=== PATIENT | female | born 1960 | race Caucasian/White ===

== ENCOUNTER 2021-10-12 00:46 | Day surgery (SDC) | payer OTHER, SELFPAY ==
[2021-10-04 14:01] VITALS: BMI 48.9
[2021-10-12 09:05] VITALS: BP 150/92; PULSE 96; RESP 20; TEMP 36.6; O2SAT 94
[2021-10-12] MEDS: LACTATED RINGERS 1,000 ML 150 ML IV CONT (09:15)
--- NOTE | 2021-10-12 09:44 | PM.IMHP ---
H&P: HPI History of Present Illness Date/Time: 10/12/21 09:44 Chief Complaint: Neoplasia screening. Narrative: This is a 61-year-old white female patient presents for screening colonoscopy. Patient reports her current weight appetite and bowel movements are normal. She denies abdominal pain. She has had no bleeding. Family history is noncontributory. She presents today for neoplasia screening Review of Systems Review of Systems: review of systems noncontributory. [facility] Past Medical History Medical History (Updated 10/12/21 @ 09:45 by Jarett Cantrell MD) BMI 45.0-49.9, adult Breast cancer screening by mammogram Colon cancer screening COVID-19 (~10/28/20) fully vaccinated and subsequent [facility] illness Encounter for wellness examination in adult Vitamin B12 deficiency anemia (03/12/21) level low at 283 on 03/12/2021 Family History Family History (Updated 08/09/18 @ 14:38 by DOCTOR UNKNOWN) Mother Diabetes mellitus Family history of lung cancer, Onset Age: 70 Father Patient's father is , Onset Age: 56 Social History Social History Smoking status: Never smoker Alcohol intake: current Drinks per week: 6 Alcohol use details: beer Substance use: never Substance use type: does not use Living arrangements: with family Spiritual care concerns: No Meds Home Medications and Allergies Home Medications Medication Instructions Recorded Confirmed Type escitalopram oxalate 20 mg tablet 20 mg PO DAILY #30 tabs 11/17/20 10/04/21 Rx lisinopril 40 mg tablet 40 mg PO DAILY #30 tabs 01/18/21 10/04/21 Rx cyanocobalamin (vitamin B-12) 1,000 mcg PO DAILY 03/15/21 10/04/21 History 1,000 mcg tablet ergocalciferol (vitamin D2) 1,250 50,000 unit PO WEEKLY #4 caps 04/16/21 10/04/21 Rx mcg (50,000 unit) capsule cyclobenzaprine 10 mg tablet 10 mg PO TID PRN muscle spasm #90 06/21/21 10/04/21 Rx tabs hydrocodone 5 mg-acetaminophen 325 1 tablet PO Q4H PRN pain #120 tabs 08/25/21 10/04/21 Rx mg tablet peg 3350-electrolytes 236 240 ml PO Q10M #4,000 mL 09/08/21 Rx gram-22.74 gram-6.74 gram-5.86 gram solution (Golytely) Allergies Allergy/AdvReac Type Severity Reaction Status Date / Time No Known Allergies Allergy Verified 10/12/21 09:04 Vital Signs Vital Signs - 24 hr 10/12/21 09:05 Temperature 97.9 F Pulse Rate 96 Respiratory Rate 20 Blood Pressure 150/92 H Pulse Oximetry 94 Oxygen Delivery Room Air Exam Narrative: Physical exam reveals patient to be alert. Vital signs stable. HEENT exam is unremarkable. Patient is anicteric. Lungs are clear to auscultation and percussion. Heart is without murmur or extra sounds. Abdominal exam Is obese. bowel sounds present soft nontender with no organomegaly. Digital external rectal exam is normal. Assessment and Plan Assessment and plan (1) Encounter for screening colonoscopy: Code(s): Z12.11 - Encounter for screening for malignant neoplasm of colon Status: Acute Assessment and Plan: Patient presents for screening colonoscopy. Appears to be at average risk for colon polyps.
--- NOTE | 2021-10-12 10:00 | WPDANESEPPF ---
Anes - Initial Pre Proc Eval Procedure: Operation Date: 10/12/21 11:00 Proposed Procedures p Screening Colonoscopy - Jarett Cantrell MD Date/Time: 10/12/21 10:00 Surgeon: Jarett Cantrell MD Pre Op Diagnosis: neoplasm screening Patient Data Age: 61 Gender: F Height: 1.52 m Weight: 115 kg Last Vital Signs Temp 97.9 F 10/12/21 09:05 Pulse 96 10/12/21 09:05 Resp 20 10/12/21 09:05 BP 150/92 H 10/12/21 09:05 Pulse Ox 94 10/12/21 09:05 O2 Del Method Room Air 10/12/21 09:05 Allergies Allergy/AdvReac Type Severity Reaction Status Date / Time No Known Allergies Allergy Verified 10/12/21 09:04 Home Medications Medication Instructions Recorded Confirmed Type escitalopram oxalate 20 mg tablet 20 mg PO DAILY #30 tabs 11/17/20 10/04/21 Rx lisinopril 40 mg tablet 40 mg PO DAILY #30 tabs 01/18/21 10/04/21 Rx cyanocobalamin (vitamin B-12) 1,000 mcg PO DAILY 03/15/21 10/04/21 History 1,000 mcg tablet ergocalciferol (vitamin D2) 1,250 50,000 unit PO WEEKLY #4 caps 04/16/21 10/04/21 Rx mcg (50,000 unit) capsule cyclobenzaprine 10 mg tablet 10 mg PO TID PRN muscle spasm #90 06/21/21 10/04/21 Rx tabs hydrocodone 5 mg-acetaminophen 325 1 tablet PO Q4H PRN pain #120 tabs 08/25/21 10/04/21 Rx mg tablet peg 3350-electrolytes 236 240 ml PO Q10M #4,000 mL 09/08/21 Rx gram-22.74 gram-6.74 gram-5.86 gram solution (Golytely) Patient hx anesthesia problems: none Family hx anesthesia problems: none Results Review: All pre-operative results and documents have been reviewed as part of the pre-operative evaluation. [facility] Past Medical History Medical History (Updated 10/12/21 @ 09:45 by Jarett Cantrell MD) BMI 45.0-49.9, adult Breast cancer screening by mammogram Colon cancer screening COVID-19 (~10/28/20) fully vaccinated and subsequent COVID illness Encounter for wellness examination in adult Vitamin B12 deficiency anemia (03/12/21) level low at 283 on 03/12/2021 Family History Family History (Updated 08/09/18 @ 14:38 by DOCTOR UNKNOWN) Mother Diabetes mellitus Family history of lung cancer, Onset Age: 70 Father Patient's father is , Onset Age: 56 Social History Social History Smoking status: Never smoker Alcohol intake: current Drinks per week: 6 Alcohol use details: beer Substance use: never Substance use type: does not use Living arrangements: with family Spiritual care concerns: No Anes - Eval Final PreProcedure Day of Procedure 10/12/21 10:00 Patient weight: super morbidly obese Heart: regular rate and rhythm Lungs: clear to auscultation Airway: Mallampati scale class II Neurological: alert and oriented Last oral intake: >/= 8 hours ASA classification: III Emergent: no Anesthetic plan: proceed Anesthesia type and monitoring: general GIVS and standard monitoring Results Review: All pre-operative results and documents have been reviewed as part of the pre-operative evaluation. Informed Consent: The patient's anesthetic plan and its attendant risks and benefits were discussed with the patient/family/POA. Questions were solicited and answers provided to the satisfaction of the patient/family/POA.
[2021-10-12 10:25] VITALS: BP 145/84; PULSE 92; RESP 30; O2SAT 90
[2021-10-12 10:35] VITALS: BP 148/92; PULSE 85; RESP 30; O2SAT 95
[2021-10-12 10:45] VITALS: BP 150/85; PULSE 83; RESP 30; O2SAT 95
== END 2021-10-12 11:00 | disposition home or self-care (01) ==
PROVIDERS: PCP Family Medicine; Visit Provider Internal Medicine Gastroenterology
PROC: 0DJD8ZZ Inspection of Lower Intestinal Tract, Via Natural or Artificial Opening Endoscopic (ICD-10-PCS; CPT 45378; principal; 2021-10-12 11:00)
DX: Z12.11 Encounter for screening for malignant neoplasm of colon (principal); K63.5 Polyp of colon; D12.2 Benign neoplasm of ascending colon; K64.8 Other hemorrhoids; Z86.16 Personal history of COVID-19; D51.9 Vitamin B12 deficiency anemia, unspecified; E66.01 Morbid (severe) obesity due to excess calories; Z68.42 Body mass index [BMI] 45.0-49.9, adult
CPT/HCPCS: 45385; 88305; J2704; J7120

== ENCOUNTER 2024-08-14 10:15 | Outpatient (CLI) | payer OTHER, SELFPAY ==
--- NOTE | ~2024-08-14 | MM_ITS ---
EXAMINATION: MM screening willem BI w traci HISTORY: Screening TECHNIQUE: Craniocaudal and mediolateral oblique 3-D tomosynthesis images were obtained and synthetic 2-D images were generated. CAD analysis was submitted and interpreted. COMPARISON: No prior mammogram is available for comparison at this institution. BREAST PARENCHYMAL COMPOSITION: Not Dense. The breasts are almost entirely fatty. FINDINGS: There is no evidence of suspicious mass, calcification, or architectural distortion to sugg est malignancy in either breast. There has been no suspicious interval change. IMPRESSION: 1. No mammographic evidence of malignancy. 2. Recommend routine screening mammography in one year. BI-RADS Category 1: Negative Reviewed, dictated and finalized at location A.
== END 2024-08-14 10:16 | disposition home or self-care (01) ==
LOC: MICIMG 10:18
PROVIDERS: PCP Family Medicine; Visit Provider Family Medicine
DX: Z12.31 Encounter for screening mammogram for malignant neoplasm of breast (principal)
CPT/HCPCS: 77063; 77067